=== PATIENT | male | born 1995 | race Hispanic/Latino ===

== ENCOUNTER 2023-10-07 05:34 | Emergency (ER) | payer BC, OTHER ==
[~2023-10-07] VITALS: Ht 165.1 cm; Wt 167.8 kg
[2023-10-07] MEDS ORDERED: NO CURRENT MEDS (05:53)
[2023-10-07 06:28] VITALS: RESP 19; O2SAT 95
[2023-10-07] MEDS ORDERED: CYCL-309 PO (06:35)
[2023-10-07] MEDS ORDERED: IBUP-1493 PO (06:35)
[2023-10-07 06:48] VITALS: BP 166/103; PULSE 83
[2023-10-07] MEDS: ONDANSETRON ODT 4MG TAB SL ONE (06:48)
[2023-10-07] MEDS: CLONIDINE HCL 0.1 MG TABLET PO ONE (06:48)
[2023-10-07] MEDS: IBUPROFEN 800 MG TAB PO ONE (06:48)
== END 2023-10-07 06:53 | disposition home or self-care (01) ==
LOC: EDH 05:34
DX: S09.90XA Unspecified injury of head, initial encounter (principal); S16.1XXA Strain of muscle, fascia and tendon at neck level, initial encounter; Z79.1 Long term (current) use of non-steroidal anti-inflammatories (NSAID); W18.39XA Other fall on same level, initial encounter; Y93.89 Activity, other specified; Y92.89 Other specified places as the place of occurrence of the external cause; Y99.8 Other external cause status
CPT/HCPCS: 70450; 72125; 82948